=== PATIENT | female | born 1975 | race Hispanic/Latino ===

== ENCOUNTER 2019-10-13 16:01 | Outpatient (CLI) | payer MEDICAID, OTHER ==
--- NOTE | 2019-10-13 17:03 | ULT ---
TRANSABDOMINAL AND TRANSVAGINAL PELVIC ULTRASOUND WITH DOPPLER: 10/13/19 PROVIDED CLINICAL HISTORY: Positive test, concern for molar . FINDINGS: Uterus measures about 11 x 6.2 x 8.1 cm. There is complex mass-like altered echogenicity present in t he uterine endometrial canal, measuring at least 6.1 x 5 x 4.1 cm. There is no evidence for an intrau terine gestational sac. The right ovary measures about 5 x 1.6 x 2.3 cm and appears sonographically unremarkable. The left ov mar is not visualized. Color Doppler and spectral analysis of the right ovarian waveforms demonstrate normal flow. There is no evidence for free pelvic fluid. IMPRESSION: Complex mass-like altered echogenicity of the uterine endometrial canal, nonspecific but compatible w ith gestational trophoblastic disease in the appropriate clinical context. No evidence for a normal i ntrauterine gestational sac. POS: ANGEL
== END 2019-10-13 16:02 | disposition home or self-care (01) ==
LOC: SCSULT 16:01
PROVIDERS: ATTEND Family Medicine
DX: O09.529 Supervision of elderly multigravida, unspecified trimester (principal); O01.9 Hydatidiform mole, unspecified
CPT/HCPCS: 76856

== ENCOUNTER 2019-10-16 19:40 | Inpatient (IN) | payer OTHER, SELFPAY ==
[2019-10-16 20:04] LABS: #Eosinphils 0.3 thou/uL (0.0-0.7); #Lymphocytes 1.8 thou/uL (1.20-3.40); #Monocytes 0.6 thou/uL (0.11-0.59); #Neutrophils 4.6 thou/uL (1.40-6.50); %Basophils 0.4 % (0.0-1.0); %Lymphocytes 24.9 % (21.0-51.0); %Monocytes 7.6 % (0.0-10.0); %Neutrophils 63.1 % (42.0-75.0); Hemoglobin 11.1 g/dL (12.0-16.0); Mean Corpuscular HGB CONC 33.2 g/dL (32.0-36.0); Mean Corpuscular Hemoglobin 24.9 pg (27.0-31.0); Mean Platelet Volume 9.1 fL (7.4-10.4); Platelet Count 253 thou/uL (130-400); RBC Distribution Width 13.3 % (11.5-14.5); Red Blood Cell (RBC) Count 4.47 mill/uL (4.20-5.40); White Blood Cell (WBC) Count 7.3 thou/uL (4.8-10.8)
[2019-10-16 20:22] LABS: Hypochromia SLIGHT = 6-15 cells (100X) (0-5/hpf); MDiff Complete? YES; Microcytosis SLIGHT = 6-15 cells (100X) (0-5/hpf); Platelet Morphology Comment Appears Adequate; Polychromasia SLIGHT = 2-3 cells (100X) (0-2/hpf)
[2019-10-16 21:11] LABS: Bilirubin Negative (Negative); Blood, Urine Negative (Negative); Clarity Clear (Clear); Glucose, Urine (Dipstick) Normal (Negative); Leukocyte Negative Leu/uL (Negative); Nitrite Negative (Negative); Protein, Urine (Dipstick) Negative (Neg-Trace); Urobilinogen Normal mg/dL (Less than 2)
[2019-10-16] MEDS ORDERED: Acetaminophen 500 MG TAB ONE (21:22)
--- NOTE | 2019-10-16 22:28 | PDOC.FPRHP ---
- History of Present Illness Chief Complaint: Vaginal Bleeding History of Present Illness: 44yo F , LMP 08/01/2019 presented to the ED complaining of vaginal bleeding and odor. Pt who is strictly botswanan speaking stated that 3 days ago she was seen by Dr. Heath and diagnosed with a molar . Pt knew she was based on a positive test approximately 1 mo earlier. Pt states that she has had intermittent light bleeding over the past month that has gotten worse recently. She had a discussion with Dr. Heath regarding treatment of her molar and understands she will likely need a hysterectomy. Denies any current fever, chills, but does note pain in her lower back. - Allergies/Adverse Reactions Allergies Allergy/AdvReac Type Severity Reaction Status Date / Time No Known Allergies Allergy Verified 01/14/16 14:59 - Home Medications Medication Instructions Recorded Confirmed Type Vit,Calc76/Iron/Folic 1 tablet PO DAILY 05/16/14 01/28/16 History [Prenatabs Rx Tablet] Ibuprofen [Motrin] 800 mg PO Q8H PRN #0 tab 01/31/16 Rx Permethrin [Permethrin 5% Cream] 1 applic TOP ONE #1 tube 01/31/16 Rx - History PMHx: None PSHx: x1 FHx: None Social: Denies any alcohol, drugs, or tobacco use - Review of Systems General: denies: fever/chills, weight/appetite/sleep changes Eyes: denies: eye pain, vision changes ENT: denies: nasal congestion, rhinorrhea Respiratory: denies: cough, shortness of breath Cardiovascular: denies: chest pain, palpitation Gastrointestinal: reports: abdominal pain. denies: nausea, vomiting, diarrhea Genitourinary: reports: other (vaginal bleeding and odor). denies: dysuria, polyuria Musculoskeletal: reports: pain (low back). denies: stiffness Neurological: denies: numbness, weakness - Vital signs BP: 141/86, Pulse: 85, Resp: 16 (Non-Labored), Temp: 98.3 (Oral), Pain: 7, O2 sat: 99 on (Room Air), Wt: 59kg - Physical Exam Constitutional: NAD, awake, alert and oriented HEENT: normocephalic and atraumatic, EOMI Neck: supple, FROM Heart: RRR, normal S1/S2, no murmurs/rubs/gallops Lungs: CTAB, no respiratory distress, good air movement Abdomen: soft, other (minimal suprapubic tenderness) Musculoskeletal: normal structure, normal tone Neurological: no focal deficit, CN II-XII intact Skin: no rash/lesions, good turgor, capillary refill <2 seconds Heme/Lymphatic: no unusual bruising or bleeding, no purpura Psychiatric: normal mood and affect, good judgment and insight, intact recent and remote memory FMR H&P: Results - Labs Result Diagrams: 10/17/19 06:13 10/17/19 06:13 Lab results: WBC 7.3 thou/uL (4.8-10.8) 10/16/19 19:54 Hgb 11.1 g/dL (12.0-16.0) L 10/16/19 19:54 Hct 33.5 % (36.0-47.0) L 10/16/19 19:54 MCV 75.0 fL (78.0-98.0) L 10/16/19 19:54 Plt Count 253 thou/uL (130-400) 10/16/19 19:54 Neutrophils % 63.1 % (42.0-75.0) 10/16/19 19:54 Urine Ketones Negative mg/dL (Negative) 10/16/19 20:45 Urine Blood Negative (Negative) 10/16/19 20:45 Urine Nitrite Negative (Negative) 10/16/19 20:45 Ur Leukocyte Esterase Negative Jay/uL (Negative) 10/16/19 20:45 FMR H&P: A/P - Problem List (1) Molar Current Visit: Yes Status: Acute Code(s): O02.0 - BLIGHTED OVUM AND NONHYDATIDIFORM MOLE (2) Anemia due to acute blood loss Current Visit: No Status: Acute Code(s): D62 - ACUTE POSTHEMORRHAGIC ANEMIA Comment: following . hgb 11.5. will cont PNV, no ferrous sulfate - Plan Molar - Discussed case with laborist, Dr. Pierre will see pt tomorrow and evaluate for hyst - Type and cross 2 unit prbc - NPO at midnight - TSH, T3/T4 - CXR Anemia - Microcytic - Likely due to acute on subacute blood loss - Fe, ferritin, TIBC IVF: LR @ 100 Diet: NPO Code: Full Dispo: Admit to inpt strategic business development for likely hyst for molar . ELOS >48hr FMR H&P: Upper Level - Plan Date/Time: 10/16/198 [place] DO, have evaluated this patient and agree with findings/plan as outlined by internal salesperson resident. Pertinent changes/additions are listed here. 44 y/o F with known molar confirmed by US earlier this week presents to the ED with complaints of back pain, malodorous vaginal discharge. she denies any difficulty breathing, palpitations, intolerance to hot/cold, visual disturbance, or headache. d/w pilot plant operator helper Dr. Pappas, agree to admit for monitoring and potential hysterectomy after evaluation. no signs of thyroid storm/pre-E at this time. TSH/T3/4 pending, monitor CBC/CMP. NPO at midnight. Addendum - Attending - Attending Attestation Date/Time: 10/16/19 4100 I personally evaluated the patient and discussed the management with Dr. Melendez I agree with the History, Examination, Assessment and Plan documented above with any addition or exceptions noted below - 44 yo seen recently at Clinic and found to have a molar presented c/o increased vaginal bleeding and cramping. Patient reports she has had light bleeding intermittently worsened in last 1-2 days. Denies any N/V, MAURO, palpitations. POBHx- TSVD x 6 C/S x 1 @36 weeks due to IUGR and nonreassuring FHTs PMH - denies any DM, HTN, cardiac, lung or kidney disease. Exam repeated by me and agree with resident's findings. Labs: H/H=11.1/33.5, Csek=208, U/A- negative, beta HCG= 129,340.12; blood type O + CXR- no acute disease A/P: 1) Molar - Case previously discussed with Dr. Barroso who recommended a hysterectomy due to high risk of hemorrhage given patient's age, multiparity, prior C/S. Will admit tonight; consult MICA WASHER GLUER and plan for surgery in AM if able to schedule.
--- NOTE | 2019-10-16 22:36 | ULT ---
ULTRASOUND PELVIC TRANSVAGINAL: History: Molar Comparison: Ultrasound 10-13-2019 FINDINGS: There is a similar appearance of the pelvis when compared to previous exam. Within the endometrial ca vity is a complex solid and cystic structure with some interval vascularity. Uterine size is similar. Ovaries are normal. IMPRESSION: Similar appearance of the molar . POS: HOME
--- NOTE | 2019-10-16 23:33 | RAD ---
CHEST TWO VIEWS: History: Molar . Comparison: None. FINDINGS: Lungs are clear. No pneumothorax. No effusion. Cardiac silhouette and mediastinal contours are within normal limits. No acute osseous abnormality. IMPRESSION: No acute intrathoracic abnormality. POS: HOME
[2019-10-17 01:17] VITALS: BMI 25.8
[2019-10-17 01:44] LABS: Thyroid Stimulating Hormone 1.2692 uIU/mL (0.35-4.94)
[2019-10-17 03:51] LABS: Free T4 (Free Thyroxine) 1.03 ng/dL (0.70-1.48)
--- NOTE | 2019-10-17 06:26 | PDOC.OBAPN ---
FMR OB AP PN: Sub - Interval History Hospital Day: 2 (molar ) Chief Complaint: vaginal bleeding Indentification: 44 yo Interval History: NAEON. Min pain in inguinal area b/l. FMR OB AP PN: Obj - Maternal Vital signs: BP: 106/66 HR: 71 RR: 20 Tmax: 98.6 F Pox: 100% on RA Wt: 60 kg FMR OB AP PN: Exam - Physical Exam General: NAD, awake, alert and oriented HEENT: normocephalic and atraumatic, no scleral icterus Heart: RRR, normal S1/S2, no murmurs/rubs/gallops General: CTAB, no respiratory distress Abdomen: soft Deviation from normal: firm uterus approx 5-6 cm below umbilicus Psychiatric: normal mood and affect FMR OB AP PN: Data - Labs Lab results: Laboratory Results - last 24 hr 10/16/19 10/16/19 10/16/19 19:54 19:54 19:54 WBC 7.3 RBC 4.47 Hgb 11.1 L Hct 33.5 L MCV 75.0 L MCH 24.9 L MCHC 33.2 RDW 13.3 Plt Count 253 MPV 9.1 Neutrophils % 63.1 Neutrophils % (Manual) Not Reportable Lymphocytes % 24.9 Monocytes % 7.6 Eosinophils % 4.0 Basophils % 0.4 Neutrophils # 4.6 Lymphocytes # 1.8 Monocytes # 0.6 H Eosinophils # 0.3 Basophils # 0.0 Hypochromia SLIGHT = 6-15 cells Plt Morphology Comment Appears Adequate Polychromasia SLIGHT = 2-3 cells Microcytosis SLIGHT = 6-15 cells Free T4 Free T3 TSH 3rd Generation Total Beta HCG 603964.12 H Urine Color Urine Clarity Urine pH Ur Specific Cost Urine Protein Urine Glucose (UA) Urine Ketones Urine Blood Urine Nitrite Urine Bilirubin Urine Urobilinogen Ur Leukocyte Esterase Blood Type O POSITIVE Antibody Screen NEGATIVE Crossmatch See Detail 10/16/19 10/17/19 20:45 00:14 WBC RBC Hgb Hct MCV MCH MCHC RDW Plt Count MPV Neutrophils % Neutrophils % (Manual) Lymphocytes % Monocytes % Eosinophils % Basophils % Neutrophils # Lymphocytes # Monocytes # Eosinophils # Basophils # Hypochromia Plt Morphology Comment Polychromasia Microcytosis Free T4 1.03 Free T3 3.44 TSH 3rd Generation 1.2692 Total Beta HCG Urine Color Light-Yellow Urine Clarity Clear Urine pH 6.5 Ur Specific Cost 1.017 Urine Protein Negative Urine Glucose (UA) Normal Urine Ketones Negative Urine Blood Negative Urine Nitrite Negative Urine Bilirubin Negative Urine Urobilinogen Normal Ur Leukocyte Esterase Negative Blood Type Antibody Screen Crossmatch FMR OB AP PN: A/P - Problem List (1) Molar Current Visit: Yes Status: Acute Code(s): O02.0 - BLIGHTED OVUM AND NONHYDATIDIFORM MOLE (2) Anemia due to acute blood loss Current Visit: No Status: Acute Code(s): D62 - ACUTE POSTHEMORRHAGIC ANEMIA Comment: following . hgb 11.5. will cont PNV, no ferrous sulfate Disposition: inpatient wool fleece grader, hyst today. Discussion: Date/Time: 10/17/19 0626 44 yo admitted for: Molar - Consulted fine arts instructor, appreciate recs. Plan for STAS today at 10:[address] Pierre/ Gisell - Typed and crossed 2 unit prbc - no longer desires more children - NPO - TSH, T3/T4 wnl - CXR wnl - beta-hcg ~129,000 Anemia - Microcytic Iron deficiency - Likely due to acute on subacute blood loss from vaginal bleeding. - ferritin, TIBC wnl - iron low. May consider iron replacement versus monitoring after hyst/source of bleeding is removed IVF: LR @ 100 Diet: NPO Code: Full Dispo: Admit to inpt wool fleece grader for hyst for molar . ELOS >48hr This H&P was discussed with Dr. Troy and Dr. Pierre who agree with the above documentation and plan. Signature: Lenora Manrique MD PGY1 Addendum - Attending - Attending Attestation Date/Time: 10/18/19 1500 I personally evaluated the patient and discussed the management with Dr. Manrique on 10/17/19. I agree with the History, Examination, Assessment and Plan documented above with any addition or exceptions noted below. Pt. recovering post-STAS, Vitals normal. No resp distress. Pain controlled. Routine post-op care.
[2019-10-17 06:44] LABS: #Eosinphils 0.3 thou/uL (0.0-0.7); #Lymphocytes 1.4 thou/uL (1.20-3.40); #Monocytes 0.5 thou/uL (0.11-0.59); #Neutrophils 3.5 thou/uL (1.40-6.50); %Basophils 0.2 % (0.0-1.0); %Eosinophils 4.7 % (0.0-10.0); %Neutrophils 61.1 % (42.0-75.0); Hemoglobin 10.4 g/dL (12.0-16.0); Mean Corpuscular HGB CONC 32.6 g/dL (32.0-36.0); Mean Corpuscular Hemoglobin 24.7 pg (27.0-31.0); Mean Corpuscular Volume 75.8 fL (78.0-98.0); Mean Platelet Volume 9.2 fL (7.4-10.4); Platelet Count 228 thou/uL (130-400); RBC Distribution Width 13.3 % (11.5-14.5); Red Blood Cell (RBC) Count 4.19 mill/uL (4.20-5.40); White Blood Cell (WBC) Count 5.7 thou/uL (4.8-10.8)
[2019-10-17 07:00] LABS: ALT (SGPT) 18 U/L (8-55); AST (SGOT) 18 U/L (5-34); Albumin 3.9 g/dL (3.5-5.0); Alkaline Phosphatase 90 U/L (40-110); Anion Gap 11 mmol/L (10-20); BUN (Urea Nitrogen) 5 mg/dL (7.0-18.7); Bilirubin, Total 0.8 mg/dL (0.2-1.2); Calc. Creatinine Clearance 123 mL/min (70-130); Calcium 8.9 mg/dL (7.8-10.44); Carbon Dioxide 21 mmol/L (22-29); Chloride 109 mmol/L (98-107); Estimated GFR-MDRD Greater than 90; Globulin 2.6 g/dL (2.4-3.5); Glucose 91 mg/dL (70-105); Iron 26 ug/dL (50-170); Iron Binding Capacity, Total 300 mcg/dL (265-497); Potassium 3.7 mmol/L (3.5-5.1); Protein, Total 6.5 g/dL (6.0-8.3); Sodium 137 mmol/L (136-145)
[2019-10-17] MEDS ORDERED: CEFAZOLIN 2 GM in Premix Bag 1 BAG IVPB SCH (07:00)
--- NOTE | 2019-10-17 07:55 | CON ---
DATE OF CONSULTATION: 10/17/2019 TIME OF SERVICE: 0700 Briefly, the patient is a 44-year-old 8, para 7, one prior section, who has a known history of molar . The president financial institution Dr. Melendez's H and P was reviewed. It is inaccurate in stating that the patient had previously seen Dr. Barroso. The patient has only been seen by Family Medicine Residency residents and attending at the Clinic. However, Dr. Barroso did have this case discuss with her over the telephone. Ideally, the patient would undergo hysterectomy or D and C clearly indicated by what seems likely to be a molar gestation. The patient could be referred to Gynecologic Oncology, however, due to her funding status, will only . Timing in obtaining of Gynecologic Oncology services outside the community in the current COVID environment seems highly unlikely. The patient is not having significant active bleeding or other signs or symptoms. Dr. Barroso recommended Family Medicine admit the patient and consult OB hospitalist for total abdominal hysterectomy for definitive surgical management as the patient does not desire future pregnancies. The patient presented to the emergency department last night. It is unclear as to whether this was instructed or random. However, because of the patient's need for definitive surgical management, after discussing the case with the Family Medicine Residency attending on-call, recommended they admit the patient, make her n.p.o., obtain consent for hysterectomy, total abdominal, and we would proceed with surgical management this morning. The patient has been admitted, has been n.p.o. has SCDs in situ and will have 2 g of Ancef on-call to the OR. Dr. Pierre, who is the OB hospitalist is coming on, will perform surgery. I have reviewed the patient's lab work, she has 2 units typed and crossed, and her chest x-ray is negative. Beta HCG upon presentation was consistent with molar gestation and ultrasound findings were similar as well. Job ID: [id number]
[2019-10-17] MEDS ORDERED: Meperidine HCl/PF 25 MG/ML VIAL ONE ×2 (08:32→12:50)
[2019-10-17] MEDS ORDERED: Famotidine/PF 20 mg/2ml Vial ONE (08:32)
[2019-10-17] MEDS ORDERED: Fentanyl 100 MCG/2 ML VIAL ONE ×2 (08:32→09:30)
[2019-10-17] MEDS ORDERED: Dexamethasone 4 mg/ml Vial ONE (09:30)
[2019-10-17] MEDS ORDERED: Lidocaine 2% PF 5 ML VIAL ONE (09:30)
[2019-10-17] MEDS ORDERED: Midazolam HCl 2 mg/2 ml Vial ONE (09:30)
[2019-10-17] MEDS ORDERED: Lidocaine 1% PF 5 ML VIAL ONE (10:42)
[2019-10-17] MEDS ORDERED: Dexamethasone 20 MG/5 ML VIAL ONE ×2 (10:42)
[2019-10-17] MEDS ORDERED: PHENYLEPHRINE-NS 100 MCG/ML 10 ML SYRINGE ONE (10:42)
[2019-10-17] MEDS ORDERED: PROPOFOL 200 MG/20 ML VIAL ONE (10:42)
[2019-10-17] MEDS ORDERED: Ondansetron PF 4 MG/2 ML Vial ONE (10:42)
[2019-10-17] MEDS ORDERED: Ketorolac Tromethamine 30 MG/ML VIAL ONE (10:42)
[2019-10-17] MEDS ORDERED: Glycopyrrolate 0.2 MG/ML 5 ML SYRINGE ONE (10:42)
[2019-10-17] MEDS ORDERED: Rocuronium Bromide 10 MG/ML (10ML VIAL) ONE (10:42)
[2019-10-17] MEDS ORDERED: Metoclopramide HCl 10 MG/2 ML VIAL ONE (10:42)
[2019-10-17] MEDS ORDERED: Bupivacaine HCl 0.5%/Epinephrine 1:200,000/PF 30 ml Vial ONE (10:42)
[2019-10-17] MEDS ORDERED: Ondansetron HCl/PF 4 MG/2 ML Vial IVP PRN (11:57)
[2019-10-17] MEDS ORDERED: Meperidine HCl/PF 25 MG/ML VIAL SLOW IVP PRN (11:57)
[2019-10-17] MEDS ORDERED: Promethazine HCl 25 MG/ML VIAL IM PRN (11:57)
[2019-10-17] MEDS ORDERED: Promethazine HCl 25 MG/ML VIAL SLOW IVP PRN (11:57)
[2019-10-17] MEDS ORDERED: Promethazine HCl 25 MG/ML VIAL ONE (12:33)
[2019-10-17] MEDS: Lactated Ringer's 1,000 ML IV SCH (13:31)
[2019-10-17] MEDS ORDERED: HYDROcodone/Acetaminophen 5/325 mg Tablet PO PRN (15:35)
[2019-10-17] MEDS ORDERED: Morphine 4 MG/ML VIAL SLOW IVP PRN (15:35)
[2019-10-17] MEDS ORDERED: Ondansetron PF 4 MG/2 ML Vial IVP PRN (15:36)
[2019-10-17] MEDS: Morphine 4 MG/ML VIAL SLOW IVP PRN ×2 (18:47→23:50)
--- NOTE | 2019-10-17 21:48 | OP ---
DATE OF PROCEDURE: 10/17/2019 PREOPERATIVE DIAGNOSES: 1. Molar . 2. Desires definitive management. 3. Grand multiparity. POSTOPERATIVE DIAGNOSES: 1. Molar . 2. Desires definitive management. 3. Grand multiparity. PROCEDURE PERFORMED: Total abdominal hysterectomy with bilateral salpingectomy. ORNAMENTAL METAL ERECTOR: Jerilyn Jameson MD ANESTHESIA: General. IV FLUIDS: 1700 mL crystalloid. URINE OUTPUT: 500 mL. ESTIMATED BLOOD LOSS: 200 mL. COUNTS: Correct. COMPLICATIONS: None. CONDITION: Stable to recovery room. SPECIMENS: Cervix, uterus, and tubes bilaterally. FINDINGS: Globular uterus. Normal appearing ovaries and tubes. Dense vesicouterine scarring from previous . INDICATIONS FOR PROCEDURE: Traci Johnson is a 44-year-old female, who was diagnosed with a molar . Given the classic findings by ultrasound of complex solid and cystic structures within the uterine cavity and quant level of 129,000, the patient was counseled this morning by myself to the risks and benefits of surgery. Given the patient's grand multiparity status, she had opted for a hysterectomy versus D and C. The patient was counseled to the risks and benefits including the risks of bleeding; infection; damage to bowel, bladder, or blood vessels. The patient was also counseled the risks of blood transfusion, the result of sterility, possibility of removal of her ovaries depending on their appearance, and the risk of incontinence. The patient expressed understanding and desired to proceed. DESCRIPTION OF PROCEDURE: Under general anesthesia, the patient was placed in dorsal supine position. She was prepared and draped in normal sterile fashion. Cueto catheter was placed. A Pfannenstiel skin incision was made and carried down to the level of the fascia. The fascia was incised, and the fascial incision was extended laterally with Munoz scissors. With the aid of Nila clamps, I clamped upon the superior edge of the rectus fascia. The fascia was then dissected off sharply and bluntly both superiorly and inferiorly. The peritoneum was entered into bluntly and sharply. As we got to the anterior leaf of the peritoneum, it was elevated and with Metzenbaum scissors was transected. The defect into the peritoneal cavity was then bluntly enlarged. A wet lap was then opened and used to hold back the abdominal contents. Two rolled moist laps were then placed in the gutters. The Aguilar O'Mo self-retaining retractor was then inserted, and the uterus was isolated. With 2 Nila clamps on the utero-ovarian pedicles and tube, the uterus was elevated. A Sameera clamp was then placed, and the tube and utero-ovarian structure was then transected, and with a Sameera suture followed by a free tie, the ovary was freed away from the main body of the uterus. This process was then repeated on the opposite side. With the ovaries safely from the body of the uterus, they were tucked away into the lateral aspect of the abdomen. Attention was placed to the round ligament, where it was elevated with [place] clamp and was ligated with 0 Vicryl and transected. The broad ligament was then dissected down to the level of the bladder and up to the level of the clamp at the tube and utero-ovarian ligament. The attention was placed on the posterior aspect of the leaf, where it was also dissected down to the level of cervix. The anterior leaf was then inspected, and the level of the ureter was then confirmed both visually and digitally. The same process was then completed on the opposite side. With the uterine vessels skeletonized and the bladder dissected down sufficiently through dense uterovesical adhesions, a Sameera clamp was then used to ligate across the uterine vessels with a Nila placed on the uterine side for backbleeding. The vessels were transected, and the vessels were then ligated with 0 Vicryl with a Sameera stitch. This process was almost completed on the other side. With the use of straight Sameera's, the cardinal ligaments were then dissected off from the cervical neck and transected and ligated with Sameera suture to the level of the cervix. With a curved Sameera, the vagina was then clamped across just proximal to the cervix. 0 Vicryl was then used to ligate the lateral corners of the vagina-cervical junction incorporating aspects of the cardinal ligament. The cervix and uterus were then transected off using Samanta scissors, and the remaining vaginal tissue was then ligated with a [id number] 0 Vicryl at the midpoint on either side. The remaining defects in the vaginal cuff were then closed with [id number] 0 Vicryl. The abdomen was then irrigated thoroughly in looking for any signs of bleeding. Once good hemostasis was achieved in the pelvis, attention was placed on the rectus muscles and the fascia for signs of bleeding, and these areas were made hemostatic. With good hemostasis, the rolled laps and open lap were then removed from the abdomen. The peritoneum was then reapproximated with a running stitch, and the fascia was then closed with 0 Vicryl in a running fashion. The fat was then closed with 2-0 plain gut in a running fashion. The skin was closed with 4-0 Monocryl in a running fashion. With the procedure completed, the patient was then extubated and taken to recovery room with Cueto in place in stable condition. Job ID: [id number]
[2019-10-18] MEDS: Lactated Ringer's 1,000 ML IV SCH ×2 (05:01→20:02)
[2019-10-18] MEDS: HYDROcodone/Acetaminophen 5/325 mg Tablet PO PRN ×3 (05:01→17:02)
[2019-10-18 06:11] LABS: Hemoglobin 9.7 g/dL (12.0-16.0); Mean Corpuscular HGB CONC 32.4 g/dL (32.0-36.0); Mean Corpuscular Hemoglobin 24.5 pg (27.0-31.0); Mean Corpuscular Volume 75.5 fL (78.0-98.0); Mean Platelet Volume 8.8 fL (7.4-10.4); Platelet Count 250 thou/uL (130-400); RBC Distribution Width 13.3 % (11.5-14.5); Red Blood Cell (RBC) Count 3.96 mill/uL (4.20-5.40)
--- NOTE | 2019-10-18 07:03 | PDOC.FM ---
- Subjective Subjective: Pt reports some mild pain this AM. Received [place] and IV morphine overnight. Tolerating CLD. No n/v. Pain w/ deep inspiration on R ribs. Otherwise, no complaints. - Objective MAR Reviewed: Yes Vital Signs & Weight: Vital Signs (12 hours) Temp Pulse Resp BP Pulse Ox 10/17/19 23:59 98.4 F 76 16 119/68 98 Weight Weight 60 kg I&O: 10/17/19 10/18/19 10/19/19 06:59 06:59 06:59 Intake Total 627 Output Total 2300 Balance -1673 Result Diagrams: 10/18/19 06:01 10/18/19 07:32 Phys Exam - Physical Examination Constitutional: NAD Respiratory: no wheezing, clear to auscultation bilateral Cardiovascular: RRR, no significant murmur Gastrointestinal: soft (appropriately tender, ), no distention, positive bowel sounds Musculoskeletal: no edema Psychiatric: normal affect, A&O x 3 Deviation from normal: dressing in place over Pfannenstiel incision, dressing not disturbed today. Dx/Plan (1) Molar Code(s): O02.0 - BLIGHTED OVUM AND NONHYDATIDIFORM MOLE Status: Acute (2) Anemia due to acute blood loss Code(s): D62 - ACUTE POSTHEMORRHAGIC ANEMIA Status: Acute - Plan Plan: 44 yo admitted for: Molar POD #1 s/p Abdominal Hyst and b/l sapingectomy - Consulted supervisor aircraft cleaning, appreciate recs. - Typed and crossed 2 unit prbc - no longer desires more children - TSH, T3/T4 wnl - CXR wnl - beta-hcg ~129,000 - continue post op cares, Hgb stable. - d/c IV pain control, [place] today, Tramadol tomorrow - ADAT - d/c gonzalez Anemia - Microcytic Iron deficiency - Likely due to acute on subacute blood loss from vaginal bleeding. - ferritin, TIBC wnl - iron low. IVF: SL Diet: Regular Code: Full Dispo: Admit to inpt oracle data warehouse developer for hyst for molar . ELOS >48hr Signature: Lenora Manrique MD PGY1 Addendum - Attending - Attending Attestation Date/Time: 10/18/19 3853 I personally evaluated the patient and discussed the management with Dr. Manrique. I agree with the History, Examination, Assessment and Plan documented above with any addition or exceptions noted below. Afeb. Pain controlled. Shaila's p.o. with vomitting. no BM/flatus yet. Incision dry/dressed. Encouraged ambulation, pain control and ISS if needed. Awaiting path.
[2019-10-18 08:02] LABS: Anion Gap 11 mmol/L (10-20); BUN (Urea Nitrogen) 4 mg/dL (7.0-18.7); Calc. Creatinine Clearance 121 mL/min (70-130); Calcium 8.9 mg/dL (7.8-10.44); Carbon Dioxide 22 mmol/L (22-29); Chloride 106 mmol/L (98-107); Estimated GFR-MDRD Greater than 90; Glucose 115 mg/dL (70-105); Potassium 3.8 mmol/L (3.5-5.1); Sodium 135 mmol/L (136-145)
--- NOTE | 2019-10-18 08:06 | PRG ---
DATE OF SERVICE: 10/18/2019 This is a postoperative progress note. SUBJECTIVE: The patient is postoperative day #1, status post total abdominal hysterectomy with bilateral salpingectomy for suspicion of molar in the setting of desiring definitive management. The patient this morning is tolerating diet. Cueto catheter has been removed and pain is under decent control. OBJECTIVE: VITAL SIGNS: Today, blood pressure is 119/68, temperature 98.4, pulse is 76, respiratory rate 16, saturating 98% on room air. GENERAL: She appears to be in no acute distress. She is alert, oriented, cooperative, and pleasant to interact with. HEAD: Normocephalic, atraumatic. Incision is clean and dry with Tegaderm and serosal dressing. Anticipate discharge tomorrow. Today, we will be monitoring her for pain control on oral medications. The patient will be monitoring for spontaneous void and advancing her diet to regular. Job ID: [id number]
[2019-10-18] MEDS: Ascorbic Acid 500 mg Chewable Tablet PO SCH (08:32)
[2019-10-18] MEDS: Ferrous Sulfate 325 MG TAB PO SCH ×2 (08:32→17:01)
[2019-10-18] MEDS ORDERED: Simethicone Chewable 80 MG TAB PO PRN (17:38)
[2019-10-18 19:45] LABS: Chlamydia by PCR Not Detected (NotDetected); GC by PCR Not Detected (NotDetected)
[2019-10-18] MEDS: Ibuprofen 800 MG TAB PO SCH (20:19)
[2019-10-19 05:29] LABS: #Eosinphils 0.1 thou/uL (0.0-0.7); #Lymphocytes 1.6 thou/uL (1.20-3.40); #Monocytes 0.5 thou/uL (0.11-0.59); #Neutrophils 4.1 thou/uL (1.40-6.50); %Basophils 0.2 % (0.0-1.0); %Eosinophils 1.5 % (0.0-10.0); %Lymphocytes 25.6 % (21.0-51.0); %Monocytes 7.4 % (0.0-10.0); %Neutrophils 65.4 % (42.0-75.0); Hemoglobin 9.2 g/dL (12.0-16.0); Mean Corpuscular HGB CONC 32.5 g/dL (32.0-36.0); Mean Corpuscular Hemoglobin 25.1 pg (27.0-31.0); Mean Corpuscular Volume 77.1 fL (78.0-98.0); Mean Platelet Volume 9.1 fL (7.4-10.4); Platelet Count 215 thou/uL (130-400); RBC Distribution Width 13.5 % (11.5-14.5); Red Blood Cell (RBC) Count 3.67 mill/uL (4.20-5.40); White Blood Cell (WBC) Count 6.2 thou/uL (4.8-10.8)
[2019-10-19] MEDS: Ibuprofen 800 MG TAB PO SCH (05:34)
[2019-10-19 05:47] LABS: Anion Gap 9 mmol/L (10-20); BUN (Urea Nitrogen) 7 mg/dL (7.0-18.7); Calc. Creatinine Clearance 121 mL/min (70-130); Calcium 8.7 mg/dL (7.8-10.44); Carbon Dioxide 26 mmol/L (22-29); Chloride 106 mmol/L (98-107); Estimated GFR-MDRD Greater than 90; Glucose 98 mg/dL (70-105); Potassium 3.8 mmol/L (3.5-5.1); Sodium 137 mmol/L (136-145)
--- NOTE | 2019-10-19 06:56 | PDOC.FM ---
- Subjective Subjective: Pt says her pain is less and less. Ambulating w/o difficulty up and down halls. Tolerating PO. No N/V. - Objective MAR Reviewed: Yes Vital Signs & Weight: Vital Signs (12 hours) Temp Pulse Resp BP Pulse Ox 10/18/19 19:04 99.6 F 79 16 114/71 98 Weight Weight 60 kg I&O: 10/17/19 10/18/19 10/19/19 06:59 06:59 06:59 Intake Total 627 480 Output Total 2300 Balance -1673 480 Result Diagrams: 10/19/19 05:20 10/19/19 05:20 Phys Exam - Physical Examination Constitutional: NAD Respiratory: no wheezing, clear to auscultation bilateral Cardiovascular: RRR Gastrointestinal: soft, positive bowel sounds mild tenderness Psychiatric: normal affect, A&O x 3 Dx/Plan (1) Molar Code(s): O02.0 - BLIGHTED OVUM AND NONHYDATIDIFORM MOLE Status: Acute (2) Anemia due to acute blood loss Code(s): D62 - ACUTE POSTHEMORRHAGIC ANEMIA Status: Acute - Plan Plan: 44 yo admitted for: Molar POD #2 s/p Abdominal Hyst and b/l sapingectomy - Consulted jelly maker, appreciate recs. - no longer desired children - TSH, T3/T4 wnl - CXR wnl - beta-hcg ~129,000. 48hr repeat beta-hcg pending. - continue post op cares, Hgb stable. - d/c [place], continue pain control w/ tramadol - Tolerating regular diet. Anemia - Microcytic Iron deficiency - Likely due to acute on subacute blood loss from vaginal bleeding. - ferritin, TIBC wnl - iron low. Iron and Vitamin C replacment. IVF: SL Diet: Regular Code: Full Dispo: Anticipate d/c today if pain control continues on tramadol Signature: Lenora Manrique MD PGY1 Addendum - Attending - Attending Attestation Date/Time: 10/20/19 1620 I personally evaluated the patient and discussed the management with Dr. Manrique on 10/19/19. I agree with the History, Examination, Assessment and Plan documented above with any addition or exceptions noted below. Afeb. VSS. Pain controlled. Shaila's p.o. incision C/D/I. Pos Flatus No BM. Stable for d/c home.
[2019-10-19] MEDS ORDERED: traMADol HCl 50 MG TAB PO PRN ×2 (06:57)
[2019-10-19] MEDS: Ferrous Sulfate 325 MG TAB PO SCH (08:21)
[2019-10-19] MEDS: Ascorbic Acid 500 mg Chewable Tablet PO SCH (08:21)
[2019-10-19 11:25] VITALS: BP 113/65; TEMP 99.6
--- NOTE | 2019-10-21 02:58 | DIS ---
DATE OF ADMISSION: 10/17/2019 DATE OF DISCHARGE: 10/19/2019 RESIDENT: Kriss Manrique MD. CONSULTS: OB-PLANT MAINTENANCE MECHANIC. PROCEDURES PERFORMED: 1. Abdominal hysterectomy with bilateral salpingectomy accomplished on 10/17/2019. 2. Pelvic transvaginal ultrasound. Impression: Similar appearance of molar compared to ultrasound on 10/13/2019. 3. Chest x-ray. Impression: No acute intrathoracic abnormality. PRIMARY DIAGNOSES: 1. Molar . 2. Microcytic anemia secondary to subacute chronic blood loss. 3. Iron deficiency secondary to subacute blood loss. SECONDARY DIAGNOSIS: Grand multiparity. DISCHARGE MEDICATIONS: 1. Ascorbic acid 1000 mg p.o. daily. 2. Simethicone 80 mg p.o. q.4 hours p.r.n. 3. Ferrous sulfate 325 mg p.o. twice daily with meals. 4. Tramadol 50 mg p.o. q.6 hours p.r.n. 5. Ibuprofen 800 mg p.o. t.i.d. p.r.n. for pain. DISCONTINUED MEDICATIONS: None. HISTORY OF PRESENT ILLNESS AND HOSPITAL COURSE: Traci Johnson is a [place]-speaking 44-year-old female, G8, P7, with a last menstrual period of 08/01/2019, who presented to the emergency department complaining of vaginal bleeding and odor. The patient had been seeing Dr. Barroso, her rn ent and research neuropsychologist, and was diagnosed with a molar . The patient has had intermittent light bleeding over the past month which has gotten worse. The patient had a discussion with Dr. Barroso and understood she may need a hysterectomy. Otherwise, the patient denied other symptoms, but did have a mild pain in her low back. The patient was typed and crossed for anemia, however, did not require blood transfusion on her stay. Notable laboratory values were a total beta-hCG of 129,340. She was worked up in the standard of care and a TSH was normal at 1.26, free T3 normal at 3.44, and a free T4 normal at 1.03. Chest x-ray was also normal. Abdominal hysterectomy was performed with bilateral salpingectomy. Ovaries were left in place. HCG tumor marker following 48 hours after surgery was 13,305. The patient tolerated surgery well, was ambulating and tolerating p.o. She was weaned off pain medications and sent home with tramadol. DISPOSITION: Stable. DISCHARGE INSTRUCTIONS: 1. Location: Home. 2. Diet: Regular. 3. Activity: Restrictions which include no lifting greater than 5 pounds for 6 weeks. The patient may be off work completely for the next 2 weeks. 4[address] Barroso within 2 weeks and repeat labs. Job ID: [id number]
== END 2019-10-19 12:40 | disposition home or self-care (01) | DRG 818 ==
LOC: ERS 19:40 → 3SE 22:21 → OBSVTOIN 10-17 12:48
PROVIDERS: ADMIT Family Medicine; ATTEND Family Medicine
PROC: 0UT90ZZ Resection of Uterus, Open Approach (ICD-10-PCS; principal; 2019-10-17)
PROC: 0UT70ZZ Resection of Bilateral Fallopian Tubes, Open Approach (ICD-10-PCS; 2019-10-17)
DX: O02.0 Blighted ovum and nonhydatidiform mole (principal); D62 Acute posthemorrhagic anemia; Z79.899 Other long term (current) drug therapy
CPT/HCPCS: 36415; 51701; 71046; 76856; 80048; 80053; 81003; 82728; 83540; 83550; 84439; 84443; 84481; 84702; 85025; 85027; 86850; 86900; 86901; 87491; 87591; 88307; 88325; 96360; A4353; J0670; J0690; J1100; J1885; J2001; J2175; J2250; J2270; J2405; J2550; J2704; J2765; J3010; S0028

== ENCOUNTER 2025-02-23 15:47 | Outpatient (CLI) | payer BC | END 2025-02-23 15:48 | disposition home or self-care (01) | LOC: BICMAMMO 15:47 | PROVIDERS: ATTEND Family Medicine | DX: Z12.31 Encounter for screening mammogram for malignant neoplasm of breast (principal); Z85.89 Personal history of malignant neoplasm of other organs and systems | CPT/HCPCS: 77063; 77067 ==